=== PATIENT | male | born 1985 | race Caucasian/White ===

== ENCOUNTER 2016-05-28 10:56 | Emergency (ER) ==
[2016-05-28 11:18] VITALS: BP 116/57
--- NOTE | 2016-05-28 11:29 | PROVIDER DOCUMENTATION ---
HPI-General Adult - General Chief Complaint: Cough Stated Complaint: COUGHING,RIB PAIN Time Seen by Provider: 05/28/16 11:21 Source: patient Allergies/Adverse Reactions: Patient Allergies Allergy/AdvReac Type Severity Reaction Status Date / Time amoxicillin trihydrate * Allergy Mild RASH Verified 05/28/16 11:20 [From Augmentin] potassium clavulanate * Allergy Mild RASH Verified 05/28/16 11:20 [From Augmentin] sulfamethoxazole Allergy Mild RASH Verified 05/28/16 11:20 [From Septra] trimethoprim [From Septra] Allergy Mild RASH Verified 05/28/16 11:20 Home Medications: Home Medication List Medication Instructions Recorded Confirmed Last Taken Type Azithromycin 500 mg PO DAILY #5 tablet 05/28/16 Unknown Rx Benzonatate [Tessalon Perle] 100 mg PO TID #30 capsule 05/28/16 Unknown Rx Prednisone 20 mg PO DAILY #12 tablet 05/28/16 Unknown Rx - History of Present Illness -Gen Adult Nature of Presenting Problems: 31 y/o WM c/o cough x 2 days. Pt states has also has posterior L rib pain x 2 weeks, s/p fall at work. Reports cough productive of green mucus at home. Taking DM syrup, but not helping. Denies sick contacts. Unknown fever at home. States 2 episodes of diarrhea; denies any abd. pain, N/V. Review of Systems - Adult - REVIEW OF SYSTEMS - ADULT Constitutional: reports: no symptoms reported. denies: chills, fever Eyes: reports: no symptoms reported. denies: blurred vision, double vision Ears, Nose, Mouth & Throat: reports: no symptoms reported. denies: ear pain, nose pain Cardiovascular: reports: no symptoms reported. denies: chest pain, palpitations Respiratory: reports: see HPI, cough. denies: shortness of breath Gastrointestinal: reports: no symptoms reported. denies: nausea, vomiting Genitourinary: reports: no symptoms reported Musculoskeletal: reports: see HPI, joint pain. denies: back pain, neck pain Integumentary: reports: no symptoms reported. denies: nail changes, rash Neurological: reports: no symptoms reported. denies: numbness, paresthesia Psychiatric: reports: no symptoms reported Endocrine: reports: no symptoms reported. denies: cold intolerance, heat intolerance Hematologic/Lymphatic: reports: no symptoms reported. denies: easy bruising, prolonged bleeding Allergic/Immunologic: reports: no symptoms reported All Other Systems: Reviewed and Negative Past History - Adult - PAST MEDICAL HISTORY-ADULT Review of Records: reports: Nursing Assessment Review, Medications Reviewed Major Childhood Illnesses: reports: denies history Cardiovascular: reports: denies history Respiratory: reports: denies history Gastrointestinal: reports: denies history Obstetrical/Gynecological: reports: denies history Genitourinary: reports: denies history Musculoskeletal: reports: denies history Neurological: reports: denies history Endocrine/Immune: reports: denies history Other Conditions: reports: denies history - PRIOR SURGERIES/PROCEDURES Surgical/Procedure History: reports: reviewed, not pertinent - PRIOR HOSPITALIZATIONS Prior Hospitalizations: reports: none - IMMUNIZATION STATUS Childhood Immunizations: See Nurse Assessment Flu Vaccine: See Nurse Assessment - FAMILY HISTORY Family History: reviewed, not pertinent - SOCIAL HISTORY Smoking: cigarettes, less than 1 pack/day Provider spent 3-5 mins advising pt. on dangers of tobacco.: Discussed manners to quit use, and f/u contacts for add'l counseling. Physical Exam-General - PHYSICAL EXAM-ADULT Initial Vital Signs Reviewed: Yes - CONSTITUTIONAL General Appearance: alert, mild distress - EYES Eyes: pink conjunctivae - HEAD, EARS, NOSE, MOUTH & THROAT HENMT: normocephalic/atraumatic, moist mucous membranes, pharyngeal erythema. negative: tonsillar exudate - NECK Neck: supple, normal inspection. negative: lymphadenopathy - RESPIRATORY Respiratory: lungs clear, normal breath sounds. negative: chest non-tender (R posterior ribs, 9-11; no contusion noted), crackles, rales, rhonchi, stridor, wheezing, pain on inspiration, retractions, splinting - CARDIOVASCULAR Cardiovascular: regular rate, rhythm. negative: bradycardia, tachycardia - GASTROINTESTINAL (ABDOMEN) Abdominal Exam: normal bowel sounds, non tender, soft. negative: distended, guarding, rigid - MUSCULOSKELETAL Back Exam: normal inspection Extremity: normal gait - SKIN Integumentary: normal color, normal turgor, warm/dry - NEUROLOGIC Neurologic: negative: aphasia - PSYCHIATRIC Psych/Mental Status: normal mood/affect, normal thought content, normal thought process, oriented x 3 Progress - PLAN OF CARE/RESULTS Progress/Plan/Lab Results: Orders Category Date Time Status RIBS UNILAT W/PA CHEST LEFT [RAD] Stat Exams 05/28/16 11:25 Completed Vital Signs Temp Pulse Resp BP Pulse Ox 05/28/16 11:17 98.0 F 98 H 20 116/57 100 amoxicillin trihydrate * [From Augmentin] Allergy (Mild, Verified 05/28/16 11:20 ) RASH potassium clavulanate * [From Augmentin] Allergy (Mild, Verified 05/28/16 11:20) RASH sulfamethoxazole [From Septra] Allergy (Mild, Verified 05/28/16 11:20) RASH trimethoprim [From Septra] Allergy (Mild, Verified 05/28/16 11:20) RASH Azithromycin 500 mg PO DAILY #5 tablet 05/28/16 Benzonatate [Tessalon Perle] 100 mg PO TID #30 capsule 05/28/16 Prednisone 20 mg PO DAILY #12 tablet 05/28/16 NICOTINE DEPENDENCE, CIGARETTES, UNCOMPLICATED (05/28/16) ACUTE UPPER RESPIRATORY INFECTION, UNSPECIFIED (05/28/16) OTHER SPECIFIED ERYTHEMATOUS CONDITIONS (05/28/16) COUGH (05/28/16) PLEURODYNIA (05/28/16) DIARRHEA, UNSPECIFIED (05/28/16) CONTUSION OF LEFT FRONT WALL OF THORAX, INITIAL ENCOUNTER (05/28/16) FALL SAME LEV FROM SLIP/TRIP W STRIKE AGNST OTH OBJECT, INIT (05/28/16) TOBACCO ABUSE COUNSELING (05/28/16) Discussed results and f/u with pt. - XRAY 1 XRAY Study: Chest Impression: See EMR Report (NAD, per Dr. Bedoya) Departure - Departure Time of Disposition Order: 12:16 DIAGNOSIS: Contusion of rib on left side Qualifiers: Encounter type: initial encounter Qualified Code(s): S20.212A - Contusion of left front wall of thorax, initial encounter URI (upper respiratory infection) Qualifiers: URI type: unspecified URI Qualified Code(s): J06.9 - Acute upper respiratory infection, unspecified Disposition: HOME 01 Certified Medical Emergency: Emergent Condition: Stable Additional Instructions: Take medications as directed. Follow up with PCP in 5-7 days for further management. Stop smoking. ED Follow Up Instructions: You have been treated by a care provider in the Emergency Department. These instructions are being provided to you so you can have an understanding of how to care for yourself upon discharge. Upon discharge from the Emergency Department, you are responsible for making arrangements for follow-up care by a physician of your choice. Take all prescribed medications as directed. Return to the Emergency Department immediately for any new or worsening symptoms. You may call the Physician Referral phone number at [phone] to obtain a list of Physicians who are taking new patients. Prescriptions: Azithromycin 500 mg PO DAILY #5 tablet Prednisone 20 mg PO DAILY #12 tablet Benzonatate [Tessalon Perle] 100 mg PO TID #30 capsule Referrals: None,PCP [Primary Care Provider] - Forms: Return to School/Parent Work Instructions: Upper Respiratory Infection, Adult, [id number], Rib Contusion Attestation - Physician/ MOOK Attestation Patient care was provided by Advanced Practice Provider:: Yes Advanced Practice Provider:: Alize Malin Advanced Practice Provider documentation review:: The Mid-level provider documentation, treatment plan and medical decision making was reviewed by the physician who agrees with all treatment and medical decision making by the MLP.
--- NOTE | 2016-05-28 13:12 | Diag Imaging Result Document ---
PROCEDURE NAME: RIBS UNILAT W/PA CHEST LEFT - 05/28/2016 PA CHEST AND LEFT RIB SERIES, 5 VIEWS: FINDINGS: There is no evidence of pneumothorax. No pleural fluid collections are present. The ribs appear to be intact. IMPRESSION: No evidence of acute disease.
== END 2016-05-28 12:34 | disposition home or self-care (01) ==
LOC: ED 10:56
DX: J06.9 Acute upper respiratory infection, unspecified (principal); S20.212A Contusion of left front wall of thorax, initial encounter; R07.81 Pleurodynia; R19.7 Diarrhea, unspecified; L53.8 Other specified erythematous conditions; F17.210 Nicotine dependence, cigarettes, uncomplicated; Z71.6 Tobacco abuse counseling; W01.198A Fall on same level from slipping, tripping and stumbling with subsequent striking against other object, initial encounter
CPT/HCPCS: 71101